=== PATIENT | male | born 1970 | race Caucasian/White ===

== ENCOUNTER → 2020-01-29 13:15 | Outpatient (BNVA) | payer OTHER, SELFPAY | PROVIDERS: Visit Provider Nurse Practitioner Family | DX: Z20.828 Contact with and (suspected) exposure to other viral communicable diseases (principal) | CPT/HCPCS: 87635 ==

== ENCOUNTER → 2021-08-19 09:43 | Outpatient (BNVA) | payer OTHER, SELFPAY | PROVIDERS: Referring Provider Nurse Practitioner; Visit Provider Orthopaedic Surgery | DX: M25.539 Pain in unspecified wrist (principal); F17.210 Nicotine dependence, cigarettes, uncomplicated | CPT/HCPCS: 73110; 99203 ==

== ENCOUNTER 2021-10-19 06:21 | Outpatient (CLI) | payer OTHER, SELFPAY ==
--- NOTE | 2021-10-19 07:15 | MR_ITS ---
WS: [id number] INDICATION: LEFT TECHNIQUE: MRI of the LEFT wrist without gadolinium enhancement. Coronal T1, coronal PD, coronal STIR , coronal 3-D FSPGR. Axial T1 and axial T2 and sagittal T1 imaging. FINDINGS: Palpable marker overlying the dorsal wrist at the level of the scaphoid. 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 Sclerosis in this area on the prior radiograph in retro spect. Slight subchondral cystic change involving the distal pole scaphoid likely degenerative. Mild subchondral cystic change involving the proximal and distal carpal row. Widening of the scapholunate interval measuring 3.2 mm. Moderate narrowing of the radiocarpal joint. Normal extensor and flexor compartment tendons. Normal extensor carpi ulnaris. TFCC appears intact. N o other acute findings. MR/MR wrist LT wo con* [id number] IMPRESSION: 1. Slight edema with loss of the normal T1 bone marrow signal in the proximal pole of the scaphoid in the area of palpable concern compatible with prior frac ture with avascular necrosis. Scaphoid could be further evaluated with CT. 2. 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 3. Moderate narrowing of the radiocarpal joint with chondromalacia. 4. No other acute findings.
== END 2021-10-19 06:22 | disposition home or self-care (01) ==
LOC: RAD 06:23
PROVIDERS: Visit Provider Orthopaedic Surgery
DX: M25.539 Pain in unspecified wrist (principal); M94.232 Chondromalacia, left wrist; R93.7 Abnormal findings on diagnostic imaging of other parts of musculoskeletal system
CPT/HCPCS: 73221

== ENCOUNTER → 2021-10-22 12:36 | Outpatient (BNVA) | payer OTHER, SELFPAY | PROVIDERS: Visit Provider Surgery | DX: K40.91 Unilateral inguinal hernia, without obstruction or gangrene, recurrent (principal) | CPT/HCPCS: 99203 ==

== ENCOUNTER → 2021-11-18 16:32 | Outpatient (BNVA) | payer OTHER, SELFPAY | PROVIDERS: Visit Provider Surgery | DX: Z09 Encounter for follow-up examination after completed treatment for conditions other than malignant neoplasm (principal); K40.91 Unilateral inguinal hernia, without obstruction or gangrene, recurrent | CPT/HCPCS: 99212 ==

== ENCOUNTER → 2022-07-05 08:51 | Outpatient (BNVA) | payer OTHER, SELFPAY | PROVIDERS: Referring Provider Nurse Practitioner; Visit Provider Anesthesiology Pain Medicine | DX: M54.50 Low back pain, unspecified (principal); M79.604 Pain in right leg; M79.605 Pain in left leg | CPT/HCPCS: 99204 ==

== ENCOUNTER → 2023-05-26 08:12 | Outpatient (BNVA) | payer OTHER, SELFPAY | PROVIDERS: Visit Provider Podiatrist Foot & Ankle Surgery | DX: Q82.8 Other specified congenital malformations of skin (principal) | CPT/HCPCS: 17110; 99203 ==

== ENCOUNTER 2023-08-04 14:50 | Outpatient (CLI) | payer OTHER, SELFPAY ==
--- NOTE | 2023-08-04 15:08 | MR_ITS ---
WS: [id number] MRI CERVICAL SPINE NONCONTRAST HISTORY: CERVICALGIA COMPARISON: None available. Technique: Multiplanar, multisequence noncontrast imaging of the cervical spine. Mild straightening of the normal cervical lordosis. Disc bases are moderately narrowed and desiccated , most significant at C4-5, C5-6 and C6-7. Signal within the cervical cord is normal. Visualized posterior fossa is unremarkable. Craniocervical junction, C1 and C2 relationship, odontoid process and soft tissues are normal. C2-C3: Small central disc osteophyte causing mild effacement of CSF very mild RIGHT foraminal stenosi s due to an osteophyte. C3-C4: No stenosis. C4-C5: Osteophytic ridging and disc bulging and facet arthritis. Mild central and moderate bilateral foraminal stenosis. Greater disc osteophyte RIGHT foramen. Mild facet arthritis. C5-C6: Osteophytic ridging, annular disc bulging and facet arthritis. Bilateral foraminal osteophytes are contributing to mild RIGHT and moderate LEFT foraminal stenosis. Mild central stenosis. C6-C7: Central disc protrusion and osteophytic ridging. Mild central stenosis with moderate bilateral foraminal stenosis. Larger osteophyte and disc complex on the RIGHT. C7-T1: Normal. Paraspinal soft tissue are normal. IMPRESSION: 1. Advanced degenerative disc disease in the cervical spine, most significant at C4-5, C5-6 and C6-7 with osteophytosis. 2. C4-5: Mild central and moderate bilateral foraminal stenosis. Greater disc osteophyte RIGHT rashel en. 3. C5-6: Moderate LEFT and mild RIGHT foraminal stenosis with mild central stenosis. Predominately d ue to disc osteophyte disease. 4. C6-7: Mild central stenosis with moderate bilateral foraminal stenosis. Greater disc osteophyte c omplex on the RIGHT. 5. C2-3: Small central disc osteophyte with very mild RIGHT foraminal narrowing.
== END 2023-08-04 14:51 | disposition home or self-care (01) ==
LOC: RAD 14:50
PROVIDERS: Visit Provider Nurse Practitioner Primary Care
DX: M48.02 Spinal stenosis, cervical region (principal); M25.78 Osteophyte, vertebrae
CPT/HCPCS: 72141

== ENCOUNTER → 2023-09-20 08:42 | Outpatient (BNVA) | payer OTHER, SELFPAY | PROVIDERS: PCP Nurse Practitioner; Visit Provider Orthopaedic Surgery | DX: M54.2 Cervicalgia (principal); M47.22 Other spondylosis with radiculopathy, cervical region | CPT/HCPCS: 36415; 72050; 80053; 81003; 85025; 99204 ==

== ENCOUNTER 2023-09-30 12:12 | Inpatient (IN) | payer OTHER, SELFPAY ==
[2023-09-30] VITALS (71 sets, daily range): BP systolic 90–172; BP diastolic 54–97; PULSE 54–125; RESP 12–22; TEMP 36.3–36.6; O2SAT 91–99; BMI 25.0; BMI 25.7
--- NOTE | 2023-09-30 | XR_ITS ---
WS: [id number] Exam: XR cervical spine 3V* [id number] Date/Time of Exam: 09/30/2023 12:00 AM Reason For Exam: KIARA PICS There is anterior fusion of the cervical spine from C4-C7 with plate and screw fixation. Intervening disc spacers are noted. The fusion appears to be in satisfactory alignment. An ET tube is in place. M ild degenerative facet change at all levels. XR/XR cervical spine 3V* [id number] IMPRESSION: 1. Anterior cervical fusion from C4-C7 in satisfactory alignment without obviou s complication.
[2023-09-30] MEDS: sodium chloride 0.9% 1,000 ML 30 ML IV (07:25)
--- NOTE | 2023-09-30 08:25 | P.ANESASSM_ITS ---
Pre-Anesthetic Assessment Height/Weight: Height 1.7 m Weight 72.575 kg Temp Pulse Resp BP Pulse Ox O2 Del Method 98 F 63 18 132/75 98 Room Air 09/30/23 07:11 09/30/23 07:11 09/30/23 07:11 09/30/23 07:11 09/30/23 07:11 09/30/23 07:11 Preop Diagnosis: Cervical spondylosis with radiculopathy Operation Date: 09/30/23 08:45 Proposed Procedures p Anterior Cervical Discectomy & Fusion ACDF w/ Anterior Interbody Fusion w/ Cage w/ Instrumentation w/ Allograft w/ Navigation L4-5-6-7(Not Applicable) - Cornell Betancourt, DO Familial anesthetic complications: None Was Beta Jojo taken within 24 hours: N/A Was Clonidine taken within 24 hours: N/A Last intake: Intake Last Liquid Date 09/29/23 Last Liquid Time 19:00 Last Solid Date 09/29/23 Last Solid Time 18:30 Social Tobacco (chews) and No alcohol Exam alert, oriented x 3, clear to auscultation bilaterally and regular rate & rhythm Airway Mallampati: Class II Dentition: other (very poor dentition multiple chipped and missing) Pulmonary Asthma and Chronic Obstructive Pulmonary Disease Anesthetic Plan ASA status: 2 Anesthesia: General Risk of > 500 ml blood loss (7ml/kg in children): No Medications/Allergies Home Medications Medication Instructions Recorded Confirmed Last Taken Type albuterol sulfate 90 mcg/actuation 2 puff inhalation Q6H PRN Allergy 01/29/20 09/29/23 09/27/23 History aerosol inhaler (ProAir HFA) Symptoms budesonide-formoterol HFA 160 2 puff inhalation BID 01/29/20 09/29/23 09/27/23 History mcg-4.5 mcg/actuation aerosol inhaler (Symbicort) ibuprofen 800 mg tablet 800 mg PO DAILY PRN Pain 05/26/23 09/29/23 09/29/23 History tizanidine 4 mg tablet 4 mg PO DIRECTED PRN Pain 05/26/23 09/30/23 09/26/23 H istory Allergies Allergy/AdvReac Type Severity Reaction Status Date / Time hydrocodone [From Vicodin] Allergy Intermediate severe Verified 09/20/23 08:57 aggression Current Medications Generic Name Dose Route Start Last Admin Trade Name Freq PRN Reason Stop Dose Admin Sodium Chloride 1,000 mls @ 30 mls/hr 09/30/23 07:00 09/30/23 07:25 Sodium Chloride 0.9% IV 10/01/23 06:59 30 mls/hr .Q24H CE Administration PFSH Anesthesia Social History Smoking and tobacco/nicotine status: current every day tobacco/nicotine user cigarettes Packs smoked per day: 0.5 Alcohol intake: current Alcohol intake frequency: 0-2 Drinks per Day Alcohol type: beer Substance/Drug Use: never Data Anesthesia Cardiac Studies: No Data to Display
--- NOTE | 2023-09-30 08:42 | W.PM.OPSUD ---
Surgery/Procedure H&P Update DATE OF PROCEDURE: September 30, 2023 DATE H&P PERFORMED: 09/20/23 H&P UPDATE INFORMATION: I have reviewed H&P completed within last 30 days, I have examined patient prior to procedure and No changes to prior documentation PREOP DIAGNOSIS: Cervical spondylosis with radiculopathy PLANNED PROCEDURE: Operation Date: 09/30/23 08:45 Proposed Procedures p Anterior Cervical Discectomy & Fusion ACDF w/ Anterior Interbody Fusion w/ Cage w/ Instrumentation w/ Allograft w/ Navigation L4-5-6-7(Not Applicable) - Cornell Betancourt DO
[2023-09-30] MEDS: ceFAZolin 2,000 MG in sodium chloride 0.9% (plus) 50 ML 100 MG IV ×2 (09:15→17:35)
[2023-09-30] MEDS: lidocaine-epi 1% 20 mL INJ INJECTION (10:03)
--- NOTE | 2023-09-30 12:39 | PM.OP ---
Operative Report Date of procedure: September 30, 2023 Pre-op diagnosis: Cervical spondylosis with radiculopathy Post-op diagnosis: same Procedure done: 1. Anterior diskectomy C4/5 2. Anterior diskectomy C5/6 3. Anterior discectomy C6/7 4. Insertion of cage C4/5 5. Insertion of cage C5/6 6. Insertion of Cage C6/7 7. Instrumentation with anterior plate from C4-C7 8. Use of allograft Surgeon: Cornell Betancuort DO Estimated blood loss (mL): 50 Procedure: 1. Anterior diskectomy C4/5 2. Anterior diskectomy C5/6 3. Anterior discectomy C6/7 4. Insertion of cage C4/5 5. Insertion of cage C5/6 6. Insertion of Cage C6/7 7. Instrumentation with anterior plate from C4-C7 8. Use of allograft The patient was taken to the operating room, where he underwent general endotracheal anesthesia without complications. He was then positioned supine on the operating table, and all areas of impingement were well padded. The arms were carefully padded and tucked at his sides. A roll was placed between the shoulder blades.. An x-ray was done to determine the appropriate level for the skin incision. The entire neck was then sterilely prepped and draped in the usual fashion. Neuromonitoring was attached prior to prepping. A transverse skin incision was made and carried down to the platysma muscle. This was then split in line with its fibers. Blunt dissection was carried down medial to the carotid sheath and lateral to the trachea and esophagus until the anterior cervical spine was visualized. A needle was placed into a disc and an x-ray was done to determine its location. The longus colli muscles were then elevated bilaterally with the electrocautery unit. Self-retaining retractors were placed deep to the longus colli muscle. Attention was brought to the C4/5 level that was confirmed on x-ray. A caspar pin was placed into the C4 vertebrae and the C5 vertebrae. The disk space was then distracted. The microscope was then brought in. A radical anterior discectomies were performed at C4/5. This included complete removal of the anterior annulus, nucleus, and posterior annulus. The posterior longitudinal ligament was removed as were the posterior osteophytes. Foraminotomies were then accomplished bilaterally. This was done using a high speed basilia, kerrison rongeurs and curretes Once all of this was accomplished, the curved currette was used to check for any residual compression. The central canal was wide open as were the foramen. A high-speed bur was used to remove the cartilaginous endplates above and below the interspace. Bleeding cancellous bone was exposed. The disc space were measured and appropriate size cage were placed sterilely onto the field. Allograft graft was packed into the cages. The cage was then placed and there was good juxtaposition against the bleeding decorticated surfaces and good distraction of each interspace. Attention was brought to the next interspace. The [place] pins were removed. Bone wax was used to prevent any bleeding from occurring at the pin sites. Attention was brought to the C5/6 level that was confirmed on x-ray. A caspar pin was placed into the C5 vertebrae and the C6 vertebrae. The disk space was then distracted. The microscope was then brought in. A radical anterior discectomies were performed at C5/6. This included complete removal of the anterior annulus, nucleus, and posterior annulus. The posterior longitudinal ligament was removed as were the posterior osteophytes. Foraminotomies were then accomplished bilaterally. This was done using a high speed basilia, kerrison rongeurs and curretes Once all of this was accomplished, the curved currette was used to check for any residual compression. The central canal was wide open as were the foramen. A high-speed bur was used to remove the cartilaginous endplates above and below the interspace. Bleeding cancellous bone was exposed. The disc space were measured and appropriate size cage were placed sterilely onto the field. Allograft graft was packed into the cages. The cage was then placed and there was good juxtaposition against the bleeding decorticated surfaces and good distraction of each interspace. Attention was brought to the next interspace. The [place] pins were removed. Bone wax was used to prevent any bleeding from occurring at the pin sites. Attention was brought to the C6/7 level that was confirmed on x-ray. A caspar pin was placed into the C6 vertebrae and the C7 vertebrae. The disk space was then distracted. The microscope was then brought in. A radical anterior discectomies were performed at C6/7. This included complete removal of the anterior annulus, nucleus, and posterior annulus. The posterior longitudinal ligament was removed as were the posterior osteophytes. Foraminotomies were then accomplished bilaterally. This was done using a high speed basilia, kerrison rongeurs and curretes Once all of this was accomplished, the curved currette was used to check for any residual compression. The central canal was wide open as were the foramen. A high-speed bur was used to remove the cartilaginous endplates above and below the interspace. Bleeding cancellous bone was exposed. The disc space were measured and appropriate size cage were placed sterilely onto the field. Allograft graft was packed into the cages. The cage was then placed and there was good juxtaposition against the bleeding decorticated surfaces and good distraction of each interspace. Attention was brought to the next interspace. The [place] pins were removed. Bone wax was used to prevent any bleeding from occurring at the pin sites. The appropriate size anterior cervical locking plate was chosen and bent into gentle lordosis. Two screws were then placed into each of the vertebral bodies at C4, C5, C6 and C7. There was excellent purchase. A final x-ray was done confirming good position of the hardware and Cages. The locking screws were then applied, also with excellent purchase. Following a final copious irrigation, there was good hemostasis and no dural leaks. The carotid pulse was strong. The wounds were then closed in layers using 2-0 Vicryl suture for the platysma muscle, 2-0 Vicryl suture for the subcutaneous tissue, and 4-0 monocryl suture in a subcuticular skin closure. Glue was placed followed by application of a sterile dressing. The drain was hooked to bulb suction. A soft collar was applied. The patient was then carefully returned to the supine position on his hospital bed where he was reversed and extubated and taken to the recovery room having tolerated the procedure well.
--- NOTE | 2023-09-30 15:16 | SUR.PHASEI ---
Addendum entered by Ambar Ramesh RN 09/30/23 15:42: Pressure was actually held, by Key, from 1335 - 1350 with no further bleeding noted. Original Note: 1330 This nurse noted hemovac drain out. Pt had been pulling at C-collar but this nurse did not visualize pt pull drain out. Pressure applied to drain site. Dressing slowly became saturated with blood. Eulalia, surgical charge nurse, to bedside and helped apply pressure. Dr Brock, anesthesiologist to bedside. Mirella, OPS nurse took over applying pressure and Eulalia contacted Dr Betancourt who instructed to change dressings to surgical incision site. Key, director surgical, to bedside and held pressure from 1335 to 1450. Bleeding slowed. Eulalia took pictures of the neck and surgical site and took them to Dr Betancourt who said ok . Key then changed the dressings. And a new C-collar applied as the origional C-Collar soiled with blood. Pt rested with eyes closed during this episode but was verbally responsive at all times. Vital signs remained stable. Resp remained even and unlabored.
--- NOTE | 2023-09-30 16:09 | PM.OP ---
Operative Report Date of procedure: September 30, 2023 Pre-op diagnosis: Postop hematoma Post-op diagnosis: same Procedure done: Evacuation of hematoma and placement of a drain Surgeon: Cornell Betancourt DO Estimated blood loss (mL): 5 Procedure: Patient was on the floor and having difficulty breathing. Patient had pulled out his drain in the postoperative area. At this point I took him down to surgery and emergently did a hematoma evacuation. Patient brought the operative suite after undergoing anesthesia was placed in supine position on the operating table. All his impingement well-padded.. Incision was opened. This mass was opened. Hematoma was evacuated there was a large hematoma and there no active bleeding was hematoma was evacuated. I placed Surgiflo in order to prophylactically prevent any further bleeding Hemovac drain was placed and wound was irrigated out and closed in layered fashion with Vicryl in the platysma's Vicryl Monocryl for the skin. Sterile dressings were applied patient was transferred to the ICU stable condition. I elected to keep the event and tube in place in order to allow for rest of his trachea. And protect his airway..
--- OUTSIDE RECORDS SUMMARY | 2023-09-30 16:23 | XMS_ITS | Patient Health Record ---
Author Name Unknown Organization [facility] Address [address] [place] [address] Care Team Providers Care Line Decorator Name Role Phone Huong Tovar Primary Care Provider Rodríguez Gross Unavailable [phone] Allergies Allergen (clinical drug ingredient) Drug/Non Drug Allergy documented on EMR Reaction Allergy Type Onset Date Status Vicodin Unknown Drug Allergy Active [place] Extract Unknown Drug Allergy Active Reason For Referral No Information Medications Medication SIG (Take, Route, Fr equency, Duration) Notes Start Date End Date Status Vitamin D Active Gabapentin 100 MG 1 capsule Orally TID Active Albuterol Active Sildenafil Citrate A ctive Symbicort Active Social History Tobacco Use: Social History Observation Description Date Details (start date - stop date) Current Smoker NA - NA xTobacco Use/Smoking Question Answer Notes Are you a current smoker How often do you smoke cigarettes? every day Additional Findings: Tobacco User e-Cigarette Problems Problem Type SNOMED Code ICD Code Onset Dates Problem Status W/U Status Risk Notes Problem Degeneration of lumbar intervertebral disc (42047400) Disc degeneratio n, lumbar (M51.36) Active confirmed Problem Arthropathy of lumbar facet joint (disorder) (221063183) Facet arthropathy , lumbar (M47.816) Active confirmed Plan Of Treatment No Information Insurance Providers Payer Name Payer Address Payer Phone Subscriber Number Group Number Insured Name Patient Relationship to Insured Coverage Start Date Coverage End Date [employer] [address] [place] [phone] [id number] Dev Walsh Self - patient is the insured Medical (General) History Medical History History ICD Code Chicken Pox Arthritis Migraine Hernia Hemmorhoids Asthma Bronchitis Surgical History Surgery Date(Month/Year) R Index Finger 1979 R Hernia 2000 L Pinky Finger 1994
--- NOTE | 2023-09-30 16:30 | ANE.PACU2 ---
Inpatient post-anesthesia follow up: Airway intact: No Vital signs: Temperature 97.8 F Pulse Rate 68 Respiratory Rate 22 Blood Pressure 132/84 Pulse Oximetry 94 Oxygen Delivery Me thod Room Air Oxygen Flow Rate 2 Fraction of Inspir ed Oxygen 21 Hydration adequate: Yes Nausea and vomiting: No Pain level: 1 Mental status: Altered
--- NOTE | 2023-09-30 16:47 | P.CONIM_ITS ---
Providers/Reason For Consult Consulting Physician/Specialty*: Hospitalist Reason for Consult*: Perioperative respiratory failure Attending Physician: Cornell Betancourt DO Primary Care Provider: YARIEL Figueroa History of Present Illness History of Present Illness Dev Walsh is a 53 year old male who is intubated after anterior discectomy C4-5-6 7 with instrumentation with anterior plate C4-C7, developed postoperative hematoma and Resp distress,Dr. Betancourt took him back to the OR for evacuation of hematoma and placement of drain, hospitalist consulted for postoperative management of perioperative respiratory failure patient is intubated and sedated on propofol. Hemodynamically stable. I requested ABG, stat CBC BMP. Will adjust ventilator settings currently he is on PEEP of 5, 100% FiO2 Review of Systems General: Reports: ROS unobtainable due to endotracheal tube Medications/Allergies Home Medications Medication Instructions Recorded Confirmed Last Taken Type albuterol sulfate 90 mcg/actuation 2 puff inhalation Q6H PRN Allergy 01/29/20 09/29/23 09/27/23 History aerosol inhaler (ProAir HFA) Symptoms budesonide-formoterol HFA 160 2 puff inhalation BID 01/29/20 09/29/23 09/27/23 History mcg-4.5 mcg/actuation aerosol inhaler (Symbicort) ibuprofen 800 mg tablet 800 mg PO DAILY PRN Pain 05/26/23 09/29/23 09/29/23 History tizanidine 4 mg tablet 4 mg PO DIRECTED PRN Pain 05/26/23 09/30/23 09/26/23 History Allergies Allergy/AdvReac Type Severity Reaction Status Date / Time hydrocodone [From Vicodin] Allergy Intermediate severe Verified 09/20/23 08:57 aggression PFSH Acute PFSH: Social History Smoking and tobacco/nicotine status: current every day tobacco/nicotine user cigarettes Packs smoked per day: 0.5 Alcohol intake: current Alcohol intake frequency: 0-2 Drinks per Day Alcohol type: beer Substance/Drug Use: never Vitals/I&O/Wt Last Vital Signs Temp 97.6 F 09/30/23 15:06 Pulse 69 09/30/23 15:06 Resp 16 09/30/23 16:44 BP 142/89 09/30/23 15:06 Pulse Ox 98 09/30/23 16:44 O2 Del Method Nasal Cannula 09/30/23 15:06 O2 Flow Rate 2 09/30/23 15:06 FiO2 70 09/30/23 16:44 09/30/23 09/30/23 09/30/23 06:59 14:59 22:59 Intake Total 1950 / 1950 Output Total 300 / 300 Balance 1650 / 1650 Weight last 48 hrs Weight 72.575 kg Physical Exam Narrative: Patient intubated sedated Euvolemic Currently on propofol Hemodynamically stable 100% FiO2 C-collar in place with drain Hemovac drain present Abdomen soft Albarran catheter in place Urinary Catheter Management: Albarran: Cath Placed During This Visit: yes, but has since been removed by the nurse Urinary Catheter Date of Insertion: 09/30/23 Urinary Catheter Time of Insertion: 16:12 Date Urinary Catheter Removed: 09/30/23 Time Urinary Catheter Discontinued: 12:22 A&P Assessment and plan (1) Cervical spondylosis with radiculopathy: (2) H/O neck surgery: (3) Respiratory failure: (4) Hematoma: Plan Perioperative respiratory failure postop day 0 Patient is intubated and sedated Currently on 100% FiO2 PEEP of 5 I have asked for straight therapist to do an ABG and adjust oxygen current to the blood gas I do not think he will require 100% FiO2 Requested stat CBC BMP and ABG Will add DuoNeb treatment as well Patient to stay intubated for at least next 24 hours Patient developed hematoma that caused respiratory distress after neck surgery C-collar in place Albarran catheter to be placed If hemoglobin stable I will be able to start DVT prophylaxis starting tonight Full code N.p.o. If stays hemodynamically stable Can do cuff leak by tomorrow and weaning trial Will follow-up with ABG and adjust ventilator settings Consult Attestations Medical Necessity Statement: Patient is intubated Coding Level of Care Code Critical Care >/= 30 minutes Critical care time (in minutes): 30 The high probability of a clinically significant, sudden or life threatening deterioration, as referenced in this documentation, required my full and direct attention, intervention and personal management. The critical care time shown is in addition to time spent performing any reported separately billable procedures and includes the following: [x] Data and vital sign review and interpretation [x ] Patient assessment, examination and intervention [x] Medication orders and management [x] Patient/Family updates as able [x] Care Coordination and Documentation. Diagnoses Cervical spondylosis with radiculopathy M47.22 H/O neck surgery Z98.890 Respiratory failure J96.90 Hematoma T14.8XXA
[2023-09-30] MEDS: albuterol 2.5 mg/3 mL Neb INHALATION ×2 (16:57→20:11)
[2023-09-30] MEDS: propofol 1,000 MG/100 ML INJ 10.8900000000000006 MG IV (17:00)
[2023-09-30 17:15] LABS: Basophils % 0.1 %; Eosinophils % 0.1 %; Hematocrit 38.1 % (37-53); Lymphocytes # 0.3 10^3/uL (0.8-4.8); Mean Corpuscular HGB Conc 35.2 g/dL (30-55); Mean Corpuscular Volume 88.2 fl (82-101); Mean Platelet Volume 8.7 fL (7.4-10.4); Monocytes # 0.5 10^3/uL (0.2-0.9); Monocytes % 3.2 %; Neutrophils # 13.14 10^3/uL (1.8-7.7); Neutrophils % 94.1 %; Nucleated Red Blood Cells % 0 %; Platelet Count 211 10^3/cmm (157-399); Red Blood Count 4.32 10^6/uL (3.85-5.65); Red Cell Distribution Width 11.9 % (12.1-15.1); White Blood Count 13.97 10^3/uL (3.29-11.43)
--- NOTE | 2023-09-30 17:17 | XRR_ITS ---
PROCEDURE INFORMATION: Exam: XR Chest Exam date and time: 09/30/2023 6:20 PM Age: 53 years old Clinical indication: Device placement; Ett placement (vent status); Prior surgery; Surgery date: Post-operative (0-2 days); Surgery type: C-spine; Additional info: Ventilation tube placement TECHNIQUE: Imaging protocol: Radiologic exam of the chest. Views: 1 view. COMPARISON: CT chest [facility] [id number] 11/19/2022 9:11 AM FINDINGS: Tubes, catheters and devices: Endotracheal tube terminates 3.5 cm above the rusty. Lungs: Curvilinear atelectasis or scarring at the left lung base. No consolidation. Pleural spaces: Unremarkable. No pleural effusion. No pneumothorax. Heart/Mediastinum: Unremarkable. No cardiomegaly. Bones/joints: ACDF hardware noted in the cervical spine. Visualized osseous structures are intact. XR/XR chest 1V portable [id number] IMPRESSION: Proper positioning of support apparatus.
[2023-09-30 17:23] LABS: ABG PCO2 40.6 mmHg (35-45); ABG PH Result 7.33 (7.35-7.45); Arterial Blood Gas Hematocrit 43.1 % (42-52); Base Excess ABG -4.3 mmol/L (-2.0-2.0); Blood Gas Operator Identificat glc; Blood Gas Sample Site Brachial, right; Blood Gas Sample Type Arterial; HCO3 ABG 21.4 mmol/L (22-26); Oxygen Device VENT
[2023-09-30 17:25] LABS: Blood Gas Tidal Volume 0.45; PO2 FiO2 Ratio Arterial Blood 0
[2023-09-30] MEDS: morphine 4 mg/mL SDV 1 mL IVP (17:26)
[2023-09-30 17:31] LABS: Anion Gap 15.2 (5-19); Blood Urea Nitrogen 13 mg/dL (6-20); Calcium 7.5 mg/dL (8.5-10.5); Carbon Dioxide 20 mmol/L (22-29); Chloride 104 mmol/L (98-107); Creatinine Clr Calc Pharmacy 94.3427; Glucose 129 mg/dL (65-115); Osmolality Calculated 282 mOsm/kg (285-295); Potassium 4.2 mmol/L (3.5-5.1); Sodium 135 mmol/L (136-145)
[2023-09-30] MEDS: lactated ringers 1,000 ML 90 ML IV (17:34)
[2023-09-30] MEDS: docusate sodium 100 mg Capsule PO (17:36)
[2023-09-30] MEDS: piperacillin-tazobactam 3.375 GM in sodium chloride 0.9% (plus) 50 ML IV (17:36)
[2023-09-30] MEDS: fentaNYL 1,000 MCG/100 ML BAG 2.5 MCG IV (18:59)
[2023-09-30] MEDS: propofol 1,000 MG/100 ML INJ 30.4800000000000004 MG IV (19:18)
[2023-09-30] MEDS: budesonide 0.5 mg/2 mL Neb INHALATION (20:10)
[2023-09-30] MEDS: enoxaparin 40 mg/0.4 mL Syringe SUBCUT (21:22)
[2023-09-30] MEDS: propofol 1,000 MG/100 ML INJ 28.3000000000000007 MG IV (22:21)
[2023-10-01] VITALS (101 sets, daily range): BP systolic 87–153; BP diastolic 55–86; PULSE 38–85; RESP 10–33; TEMP 36.8; O2SAT 89–100
[2023-10-01] MEDS: ceFAZolin 2,000 MG in sodium chloride 0.9% (plus) 50 ML 100 MG IV ×2 (00:11→09:09)
[2023-10-01] MEDS: fentaNYL 1,000 MCG/100 ML BAG 17.5 MCG IV (00:37)
[2023-10-01] MEDS: propofol 1,000 MG/100 ML INJ 26.129999999999999 MG IV (02:04)
[2023-10-01] MEDS: piperacillin-tazobactam 3.375 GM in sodium chloride 0.9% (plus) 50 ML IV ×3 (02:04→17:24)
[2023-10-01 03:53] LABS: ABG PCO2 33.2 mmHg (35-45); ABG PH Result 7.41 (7.35-7.45); Arterial Blood Gas Hematocrit 39.8 % (42-52); Base Excess ABG -2.7 mmol/L (-2.0-2.0); Blood Gas Allen Test Pos; Blood Gas Operator Identificat JB; Blood Gas Sample Site Brachial, right; Blood Gas Sample Type Arterial; Blood Gas Tidal Volume 0.45; HCO3 ABG 21.2 mmol/L (22-26); Oxygen Device VENT; PO2 ABG 86.6 mmHg (80.0-100.0); PO2 FiO2 Ratio Arterial Blood 0
[2023-10-01] MEDS: midazolam 1 mg/mL INJ 2 mL 2 MG IVP ×2 (04:16→05:40)
[2023-10-01] MEDS: lactated ringers 1,000 ML 90 ML IV ×2 (04:42→16:03)
[2023-10-01] MEDS: fentaNYL 1,000 MCG/100 ML BAG 20 MCG IV (05:40)
[2023-10-01] MEDS: propofol 1,000 MG/100 ML INJ 8.71000000000000085 MG IV (07:15)
[2023-10-01] MEDS: albuterol 2.5 mg/3 mL Neb INHALATION ×2 (07:36→11:38)
[2023-10-01] MEDS: budesonide 0.5 mg/2 mL Neb INHALATION ×2 (07:36→20:11)
[2023-10-01] MEDS: LORazepam 2 mg/mL INJ 10 mL MDV 1 MG IVP (08:04)
[2023-10-01 09:19] LABS: Basophils % 0.1 %; Hematocrit 39.6 % (37-53); Lymphocytes # 0.7 10^3/uL (0.8-4.8); Lymphocytes % 6.7 %; Mean Corpuscular HGB Conc 34.6 g/dL (30-55); Mean Corpuscular Hemoglobin 30.9 pg (27-33); Mean Corpuscular Volume 89.4 fl (82-101); Mean Platelet Volume 8.9 fL (7.4-10.4); Monocytes # 0.9 10^3/uL (0.2-0.9); Monocytes % 7.9 %; Neutrophils % 84.7 %; Nucleated Red Blood Cells % 0 %; Platelet Count 217 10^3/cmm (157-399); Red Blood Count 4.43 10^6/uL (3.85-5.65); Red Cell Distribution Width 11.9 % (12.1-15.1); White Blood Count 10.74 10^3/uL (3.29-11.43)
[2023-10-01 09:36] LABS: Anion Gap 18.4 (5-19); Blood Urea Nitrogen 10 mg/dL (6-20); Calcium 8.6 mg/dL (8.5-10.5); Carbon Dioxide 21 mmol/L (22-29); Chloride 102 mmol/L (98-107); Creatinine Clr Calc Pharmacy 95.3893; Glucose 137 mg/dL (65-115); Magnesium 2.1 mg/dL (1.7-2.3); Osmolality Calculated 287 mOsm/kg (285-295); Potassium 3.4 mmol/L (3.5-5.1); Sodium 138 mmol/L (136-145)
--- NOTE | 2023-10-01 09:44 | PC.NURSE ---
patient awake and folling commands, order from dr. Block to shut off sedation, 1x dose ativan per MAR, plan to extubate as long as breathing trial successful
--- NOTE | 2023-10-01 09:55 | P.PN_ITS ---
Subjective 2 Subjective: Patient intubated resting in ICU. Patient is starting to get weaned from the vent. At this point plan will be to leave the drain in and likely hopefully move upstairs if okay with the hospitalist. Vitals/I&O/Wt Last Vital Signs Temp 97.6 F 09/30/23 15:06 Pulse 62 10/01/23 09:00 Resp 16 10/01/23 09:35 BP 150/79 10/01/23 09:00 Pulse Ox 98 10/01/23 09:35 O2 Del Method Mechanical Ventilation 10/01/23 07:20 O2 Flow Rate 2 09/30/23 15:06 FiO2 21 10/01/23 09:35 09/30/23 10/01/23 10/01/23 22:59 06:59 14:59 Intake Total 304.042 / 2254.042 1463.960 / 3718.002 45.493 / 45.493 Output Total 550 / 850 2300 / 3150 Balance -245.958 / 1404.042 -836.040 / 568.002 45.493 / 45.493 Weight last 48 hrs Weight 164 lb 3.2 oz Weight 160 lb Physical Exam 2 Narrative: Intubated in process of weaning from the vent Urinary Catheter Management: Albarran: Cath Placed During This Visit: yes, but has since been removed by the nurse Reason for Continuing Indwelling Catheter: Accurate Measurement of Urinary Output in Critically Ill Patients Urinary Catheter Date of Insertion: 09/30/23 Urinary Catheter Time of Insertion: 16:12 Date Urinary Catheter Removed: 09/30/23 Time Urinary Catheter Discontinued: 12:22 Data 10/01/23 09:12 10/01/23 09:12 A&P Assessment and plan (1) Status post cervical spinal fusion: Postop day 1 ACDF and evacuation of hematoma Wean from vent today Anticipate discharge from ICU up to floor. Anticipate discharge planning tomorrow Attestations 2 Medical Necessity Statement*: Intubated Coding Level of Care Code Acute Code for Chg Fwd Diagnoses Status post cervical spinal fusion Z98.1
--- NOTE | 2023-10-01 10:14 | PC.NURSE ---
Patient extubated per RT to 2 L NC, AO follows commands
[2023-10-01] MEDS: morphine 4 mg/mL SDV 1 mL IVP ×2 (11:59→18:42)
--- NOTE | 2023-10-01 12:43 | P.PN_ITS ---
Subjective 2 Subjective: Patient intubated and sedated this morning which limits history from patient. Spouse is bedside and supportive. Discussed plan of care. Medications: Reviewed: Yes Vitals/I&O/Wt Last Vital Signs Temp 97.6 F 09/30/23 15:06 Pulse 53 L 10/01/23 11:41 Resp 14 10/01/23 11:59 BP 145/79 10/01/23 10:00 Pulse Ox 99 10/01/23 11:59 O2 Del Method Nasal Cannula 10/01/23 11:30 O2 Flow Rate 2 10/01/23 11:30 FiO2 21 10/01/23 09:35 09/30/23 10/01/23 10/01/23 22:59 06:59 14:59 Intake Total 304.042 / 2254.042 1463.960 / 3718.002 45.493 / 45.493 Output Total 550 / 850 2300 / 3150 Balance -245.958 / 1404.042 -836.040 / 568.002 45.493 / 45.493 Weight last 48 hrs Weight 74.48 kg Weight 72.575 kg Physical Exam 2 Narrative: General: Patient is intubated and sedated Head: Atraumatic. Neck: Drain present with some dark blood products in the drainage tube and slight old appearing blood in the drain. Cardiovascular: RRR. No gallops. No murmurs. No peripheral edema. Lungs: Clear to auscultation, no crackles or wheezes. Intubated on mechanical ventilation. Skin: No jaundice. No rashes. Abdomen: Hypoactive bowel sounds, abdomen soft. Genito Urinary: Genital exam not performed since complaints not related. Rectal: Rectal exam not performed since no symptoms indicated blood loss. Extremities: No cyanosis or clubbing. Musculoskeletal: No erythematous joints. Neurological: No myoclonus. Sedated. Urinary Catheter Management: Albarran: Cath Placed During This Visit: yes, but has since been removed by the nurse Reason for Continuing Indwelling Catheter: Accurate Measurement of Urinary Output in Critically Ill Patients Urinary Catheter Date of Insertion: 09/30/23 Urinary Catheter Time of Insertion: 16:12 Date Urinary Catheter Removed: 09/30/23 Time Urinary Catheter Discontinued: 12:22 Data 10/01/23 09:12 10/01/23 09:12 Micro: Microbiology 09/30/23 16:50 Gram Stain - Final Sputum - Endotracheal Tube Aspirate A&P Assessment and plan (1) Respiratory failure: Vent requirements have improved SBT this morning, if he does well assess for extubation Patient is on Zosyn, no obvious source of infection Check procalcitonin (2) Bradycardia: Patient found to be bradycardic with heart rate in the high 30s this morning Suspect secondary to the sedation Continues telemetry monitoring Monitor electrolytes Will see response to extubation (3) Cervical spondylosis with radiculopathy: Status post surgery Management per orthopedic spine (4) Hematoma: Status post drain placement, management per primary (5) H/O neck surgery: Management per primary Attestations 2 Medical Necessity Statement*: Patient requires ongoing hospitalization for vent management, drain management, postop care, and supportive care. Critical Care Time: The high probability of a clinically significant, sudden or life threatening deterioration of the patient's respiratory system(s) required my full and direct attention, intervention and personal management. The critical care time is as shown. This time is in addition to time spent performing any reported procedures but includes the following: [x] Data and vital sign review and interpretation [x] Patient assessment, examination and intervention [x] Documentation [x] Medication orders and management Critical Care Time (min): 33 Coding Level of Care Code Acute Code for [facility] Diagnoses Respiratory failure J96.90 Bradycardia R00.1 Cervical spondylosis with radiculopathy M47.22 Hematoma T14.8XXA H/O neck surgery Z98.890
[2023-10-01 13:33] LABS: Procalcitonin 0.27 ng/mL (0-0.5)
[2023-10-01] MEDS: morphine IR 15 mg Tablet PO ×2 (15:56→20:30)
[2023-10-01] MEDS: phenol oral Spray 177 mL 3 SPRAY MUCOUS MEM (16:02)
[2023-10-01] MEDS: enoxaparin 40 mg/0.4 mL Syringe SUBCUT (20:30)
[2023-10-02] VITALS (14 sets, daily range): BP systolic 118–152; BP diastolic 68–91; PULSE 62–84; RESP 14–22; TEMP 36.6; O2SAT 88–95
[2023-10-02] MEDS: morphine IR 15 mg Tablet PO ×2 (00:26→10:16)
[2023-10-02] MEDS: lactated ringers 1,000 ML 90 ML IV (01:29)
[2023-10-02] MEDS: piperacillin-tazobactam 3.375 GM in sodium chloride 0.9% (plus) 50 ML IV ×2 (01:30→09:31)
[2023-10-02] MEDS: morphine 4 mg/mL SDV 1 mL IVP (04:39)
[2023-10-02 05:41] LABS: Basophils % 0.2 %; Eosinophils # 0.1 10^3/uL (0.0-0.8); Eosinophils % 0.6 %; Hematocrit 37.5 % (37-53); Lymphocytes # 1.1 10^3/uL (0.8-4.8); Lymphocytes % 13.2 %; Mean Corpuscular HGB Conc 32.8 g/dL (30-55); Mean Corpuscular Hemoglobin 30.2 pg (27-33); Mean Corpuscular Volume 92.1 fl (82-101); Mean Platelet Volume 9.1 fL (7.4-10.4); Monocytes # 0.7 10^3/uL (0.2-0.9); Monocytes % 8.1 %; Neutrophils % 77.5 %; Nucleated Red Blood Cells % 0 %; Platelet Count 196 10^3/cmm (157-399); Red Blood Count 4.07 10^6/uL (3.85-5.65); Red Cell Distribution Width 12.4 % (12.1-15.1); White Blood Count 8.51 10^3/uL (3.29-11.43)
[2023-10-02 06:13] LABS: Albumin Level 3.5 g/dL (3.5-5.2); Anion Gap 11.9 (5-19); Blood Urea Nitrogen 9 mg/dL (6-20); Calcium 7.8 mg/dL (8.5-10.5); Carbon Dioxide 28 mmol/L (22-29); Chloride 106 mmol/L (98-107); Creatinine Clr Calc Pharmacy 106.3878; Glomerular Filtration Rate 101.9 mL/min (90-130); Glucose 106 mg/dL (65-115); Phosphorus 1.8 mg/dL (2.5-4.5); Potassium 3.9 mmol/L (3.5-5.1); Sodium 142 mmol/L (136-145)
[2023-10-02] MEDS: budesonide 0.5 mg/2 mL Neb INHALATION (07:44)
[2023-10-02] MEDS: albuterol 2.5 mg/3 mL Neb INHALATION (07:44)
[2023-10-02] MEDS: docusate sodium 100 mg Capsule PO (09:31)
--- NOTE | 2023-10-02 10:16 | P.PN_ITS ---
Subjective 2 Subjective: Patient is awake and alert this morning. He was extubated yesterday. Does have a cough which is at baseline per spouse. He reports pain is adequately controlled on oral analgesics currently. He has not had a bowel movement yet postoperatively. Overall doing better. He is hopeful to go home soon. Drain with reported fairly minimal output. Medications: Reviewed: Yes Vitals/I&O/Wt Last Vital Signs Temp 97.8 F 10/02/23 00:00 Pulse 84 10/02/23 08:00 Resp 22 H 10/02/23 08:00 BP 132/84 10/02/23 08:00 Pulse Ox 94 10/02/23 08:00 O2 Del Method Room Air 10/02/23 07:44 O2 Flow Rate 2 10/01/23 20:12 FiO2 21 10/01/23 09:35 10/01/23 10/02/23 10/02/23 22:59 06:59 14:59 Intake Total 1490 / 9780.618 7299 / 2804.493 250 / 250 Output Total 600 / 600 1400 / 2000 Balance 890 / 1185.493 -381 / 804.493 250 / 250 Weight last 48 hrs Weight 72.983 kg Weight 74.48 kg Physical Exam 2 Narrative: General: Patient is awake and alert. Head: Atraumatic. Hard of hearing. Neck: Drain present similar-appearing dark blood products in the drainage tube and slight old appearing blood in the drain. Neck brace in place. Cardiovascular: RRR. No gallops. No murmurs. No peripheral edema. Lungs: Clear to auscultation, no crackles or wheezes. Intubated on mechanical ventilation. Skin: No jaundice. No rashes. Abdomen: Improving bowel sounds, abdomen soft. Extremities: No cyanosis or clubbing. Musculoskeletal: No erythematous joints. Neurological: No myoclonus. Moves all extremities. Urinary Catheter Management: Albarran: Cath Placed During This Visit: yes, but has since been removed by the nurse Reason for Continuing Indwelling Catheter: Accurate Measurement of Urinary Output in Critically Ill Patients Urinary Catheter Date of Insertion: 09/30/23 Urinary Catheter Time of Insertion: 16:12 Date Urinary Catheter Removed: 09/30/23 Time Urinary Catheter Discontinued: 12:22 Data 10/02/23 04:50 10/02/23 04:50 Micro: Microbiology 09/30/23 16:50 Gram Stain - Final Sputum - Endotracheal Tube Aspirate A&P Assessment and plan (1) Cervical spondylosis with radiculopathy: Status post surgery Management per orthopedic spine Increase bowel regimen Continue therapy, encourage OOB Soft mechanical diet Downgrade versus discharge pending primary service evaluation (2) Respiratory failure: Resolved Discontinue Zosyn Breathing treatments PRN Encourage inspiratory spirometry (3) Bradycardia: Resolved (4) Hematoma: Status post drain placement, management per primary (5) H/O neck surgery: Management per primary Attestations 2 Medical Necessity Statement*: Per primary Coding Level of Care Code Acute Code for [facility] Fwd Diagnoses Cervical spondylosis with radiculopathy M47.22 Respiratory failure J96.90 Bradycardia R00.1 Hematoma T14.8XXA H/O neck surgery Z98.890
--- NOTE | 2023-10-02 10:25 | PM.DCS ---
Discharge Providers Date of Admission: 09/30/23 12:12 Date of Discharge: October 02, 2023 Attending Provider at Admission: Cornell Betancourt DO Attending Provider at Discharge: Cornell Betancourt DO Primary Care Provider: YARIEL Figueroa Diagnoses at Discharge Discharge Diagnosis (1) Respiratory failure: Status: Acute (2) Bradycardia: Status: Acute (3) Cervical spondylosis with radiculopathy: Status: Acute (4) Hematoma: Status: Acute (5) H/O neck surgery: Status: Acute Reason for Visit Reason for Visit: M47.22 Physical Exam Narrative: Patient sitting up in chair comfortable breathing well. At this point patient is been up with physical therapy several times. Urinary Catheter Management: Albarran: Cath Placed During This Visit: yes, but has since been removed by the nurse Reason for Continuing Indwelling Catheter: Accurate Measurement of Urinary Output in Critically Ill Patients Urinary Catheter Date of Insertion: 09/30/23 Urinary Catheter Time of Insertion: 16:12 Date Urinary Catheter Removed: 09/30/23 Time Urinary Catheter Discontinued: 12:22 Discharge Data Studies Completed and Pending Completed Studies During Hospitalization Category Date Time Status CXRP [XR chest 1V portable 44959] Routine Exams 09/30/23 17:17 Completed Pending at discharge Category Date Time Status C-arm Fluoroscopy 15596 Routine Exams 09/30/23 06:51 Taken Sputum Culture and Gram Stain Routine Lab 09/30/23 16:50 Results Radiology Impressions Chest X-Ray 09/30/23 17:17 IMPRESSION: Proper positioning of support apparatus. Laboratory Results WBC 8.51 10^3/uL (3.29-11.43) 10/02/23 04:50 Corrected WBC Cancelled 10/01/23 05:27 RBC 4.07 10^6/uL (3.85-5.65) 10/02/23 04:50 Hgb 12.30 g/dL (11.27-16.99) 10/02/23 04:50 Hct 37.5 % (37-53) 10/02/23 04:50 MCV 92.1 fl (82-101) 10/02/23 04:50 MCH 30.2 pg (27-33) 10/02/23 04:50 MCHC 32.8 g/dL (30-55) D 10/02/23 04:50 RDW 12.4 % (12.1-15.1) 10/02/23 04:50 Plt Count 196 10^3/cmm (157-399) 10/02/23 04:50 MPV 9.1 fL (7.4-10.4) 10/02/23 04:50 Gran % Cancelled 10/01/23 05:27 Neut % (Auto) 77.5 % 10/02/23 04:50 Lymph % (Auto) 13.2 % 10/02/23 04:50 Atlantic % (Auto) 8.1 % 10/02/23 04:50 Eos % (Auto) 0.6 % 10/02/23 04:50 Baso % (Auto) 0.2 % 10/02/23 04:50 Neut # (Auto) 6.60 10^3/uL (1.8-7.7) 10/02/23 04:50 Lymph # (Auto) 1.1 10^3/uL (0.8-4.8) 10/02/23 04:50 Atlantic # (Auto) 0.7 10^3/uL (0.2-0.9) 10/02/23 04:50 Eos # (Auto) 0.1 10^3/uL (0.0-0.8) 10/02/23 04:50 Baso # (Auto) 0.0 10^3/uL (0.0-0.1) 10/02/23 04:50 Absolute Gran (auto) Cancelled 10/01/23 05:27 Nucleated RBC % (auto) 0 % 10/02/23 04:50 Nucleated RBCs # 0.0 /100WBC 10/02/23 04:50 Specimen Type Arterial 10/01/23 03:40 Sample Site Brachial, right 10/01/23 03:40 ABG pH 7.41 (7.35-7.45) 10/01/23 03:40 ABG pCO2 33.2 mmHg (35-45) L 10/01/23 03:40 ABG pO2 86.6 mmHg (80.0-100.0) 10/01/23 03:40 ABG PO2/FiO2 Ratio 0 10/01/23 03:40 ABG HCO3 21.2 mmol/L (22-26) L 10/01/23 03:40 ABG Base Excess -2.7 mmol/L (-2.0-2.0) L 10/01/23 03:40 Joseph Test Pos 10/01/23 03:40 Hematocrit 39.8 % (42-52) L 10/01/23 03:40 O2 Delivery Device Vent 10/01/23 03:40 FiO2 30.0 % 10/01/23 03:40 Tidal Volume 0.45 10/01/23 03:40 PEEP 5.0 cmH20 10/01/23 03:40 Primer Waterproofing Machine Adjuster ID Zach 10/01/23 03:40 Sodium 142 mmol/L (136-145) 10/02/23 04:50 Potassium 3.9 mmol/L (3.5-5.1) 10/02/23 04:50 Chloride 106 mmol/L (98-107) 10/02/23 04:50 Carbon Dioxide 28 mmol/L (22-29) 10/02/23 04:50 Anion Gap 11.9 (5-19) 10/02/23 04:50 BUN 9 mg/dL (6-20) 10/02/23 04:50 Creatinine 0.8 mg/dL (0.7-1.2) 10/02/23 04:50 GFR Calculation 101.9 mL/min (90-130) 10/02/23 04:50 Glucose 106 mg/dL (65-115) 10/02/23 04:50 Calculated Osmolality 287 mOsm/kg (285-295) 10/01/23 09:12 Calcium 7.8 mg/dL (8.5-10.5) L 10/02/23 04:50 Phosphorus 1.8 mg/dL (2.5-4.5) L 10/02/23 04:50 Magnesium 2.1 mg/dL (1.7-2.3) 10/01/23 09:12 Albumin 3.5 g/dL (3.5-5.2) 10/02/23 04:50 Procalcitonin 0.27 ng/mL (0-0.5) 10/01/23 09:12 Vitals Last Vital Signs Temp 97.8 F 10/02/23 00:00 Pulse 84 10/02/23 08:00 Resp 22 H 10/02/23 10:16 BP 132/84 10/02/23 08:00 Pulse Ox 94 10/02/23 08:00 O2 Del Method Room Air 10/02/23 07:44 O2 Flow Rate 2 10/01/23 20:12 FiO2 21 10/01/23 09:35 Discharge Plan Discharge Patient Disposition: Home Condition: Stable Prescriptions: New oxycodone 5 mg tablet 5 mg PO Q4H PRN (Reason: pain) 7 Days Qty: 40 0RF Continued budesonide-formoterol [Symbicort] 160-4.5 mcg/actuation HFA aerosol inhaler 2 puff INHALATION BID albuterol sulfate [ProAir HFA] 90 mcg/actuation HFA aerosol inhaler 2 puff INHALATION Q6H PRN (Reason: Allergy Symptoms) tizanidine 4 mg tablet 4 mg PO DIRECTED PRN (Reason: Pain) Discontinued ibuprofen 800 mg tablet 800 mg PO DAILY PRN (Reason: Pain) Discharge Orders: Discharge Order (Routine); Ordered 10/02/23 Ordered By: Cornell Betancourt Discharge Diet: Advance as tolerated Discharge Activity: Limit activity as instructed Patient Instructions: Opioid Safety Activity Restrictions/Additional Instructions: Thank you for choosing [facility] for your care! The following is a list of instructions, from your provider, to follow upon your discharge to ensure you have the optimal recovery from your recent injury or surgery. Anterior Cervical Discectomy and Fusion: What to Expect at Home Your Recovery Follow-up care is a holguin part of your treatment and safety. Be sure to make and go to all appointments, and call your doctor if you are having problems. If you do not already have a follow-up appointment made, call office in the next 1-3 days to make follow up appointment for 2 weeks at [phone]. It is also a good idea to know your test results and keep a list of the medicines you take. You can expect your neck to feel stiff or sore after surgery. This should improve in the weeks after surgery. But it may take 4 to 6 months for you to get better completely. You may have trouble sitting or standing in one position for very long and may need pain medicine in the weeks after your surgery. It may take 4 to 6 weeks to get back to your usual activities, but it may depend on what kind of surgery you had. Your throat will feel sore and it may be difficult to swallow for the first 3 days after your surgery. As long as you can get liquids down without difficulty, this should slowly improve, otherwise call our office or seek medical attention if it becomes increasingly difficult to get anything down including liquids. Avoid hot liquids for first 3-5 days. Soothing foods/liquids such as jello, pudding, and luke warm soups are recommended until swallowing improves. Staying elevated will also help, it's advised you keep propped up at while sleeping to help reduce the swelling. You may use an ice pack directly on your incision or around it on the front of your neck, using a cloth to protect your skin; and a heating pad to the back of your neck as needed. Do not use over the counter anti-inflammatory medications (Ibuprofen, Motrin, Aleve, Advil, etc) Taking these meds after having a fusion can delay fusion rates, we recommend you avoid them for the first 3 months after your surgery[address] Dr. Betancourt may advise you to work with a physical therapist to strengthen the muscles around your neck and back - this will be discussed at your follow - up appointments. The pain or numbness you were having in your arms before surgery should get better or go away completely. This care sheet gives you a general idea about how long it will take for you to recover. But each person recovers at a different pace. Follow the steps below to get better as quickly as possible. How can you care for yourself at home? Activity ? Rest when you feel tired. Getting enough sleep will help you recover. ? Try to walk each day. Start by walking a little more than you did the day before. Bit by bit, increase the amount you walk. Walking boosts blood flow and helps prevent pneumonia and constipation. Walking may also decrease your muscle soreness after surgery. ? No lifting anything that is more that 5 pounds. This may include heavy grocery bags and milk containers, a heavy briefcase or backpack, cat litter or dog food bags, a child, or a vacuum filter screen cleaner. ? Avoid strenuous activities, such as bicycle riding, jogging, weightlifting, or aerobic exercise, until your doctor says it is okay. ? Do not drive until your follow-up visit after your surgery, or until your doctor says it isokay. ? Avoid taking long car trips for 2 to 4 weeks after surgery. Your neck may become tired and painful from sitting too long in one position. ? You will probably need to take 4 to 6 weeks off from work. It depends on the type of work you do and how you feel. ? You may have sex as soon as you feel able, but avoid positions that put stress on your neck or cause pain. Diet ? You can eat your normal diet. If your stomach is upset, try bland, low-fat foods like plain rice, broiled chicken, toast, and yogurt ? Drink plenty of fluids. If you have kidney, heart, or liver disease and have to limit fluids, talk with your doctor before you increase the amount of fluids you drink. ? You may notice that your bowel movements are not regular right after your surgery. This is common. Try to avoid constipation and straining with bowel movements. You may want to take a fiber supplement every day. If you have not had a bowel movement after a couple of days, ask your doctor about taking a mild laxative. Medicines ? Take pain medicines exactly as directed. 1. If Dr. Betancourt gave you a prescription medicine for pain, take lt as prescribed. 2. Do not take two or more pain medicines at the same time unless the doctor told you to. Many pain medicines have acetaminophen, which is Tylenol. Too much acetaminophen {Tylenol) can be harmful. 3. If you think your pain pill is making you sick to your stomach: 4. Take your pills after meals (unless your doctor has told you not to). 5. Ask your Dr. for a different pain pill. Incisioncare ? Remove your dressing 48hours after your surgery. Ok to shower and get the incision wet. Do not overtly wash your incision. When done, pad dry, leave open to air thereafter. Avoid creams and ointments directly on your incision. ? Your sutures in the incision will dissolve and fall out on their own. ? Keep the area clean and dry. You may cover it with a gauze bandage if it weeps or rubs against clothing; if you choose to do this, change the dressing everyday. Other instructions ? Use a heating pad, hot water bottle, or gentle massage on your back to reduce stiffness. Avoid putting heat on your incision When should you call for help? ? Call 911 anytime you think you may need emergency care. For example, call if: ? You pass out (lose consciousness). ? You have sudden chest pain and shortness of breath, or you cough upblood. ? You cannot swallow. ? You have severe pain in your neck or back. ? Call your Dr. or seek immediate medical care if: ? You have pain that does not get better after you take pain pills. ? You have loose stitches, or your incision comes open. ? You have blood or fluid draining from the incision. ? You have signs of infection, such as: 1. Increased pain, swelling, warmth, or redness. 2. Red streaks leading from the site. 3. Pus draining from the site. 4. Swollen lymph nodes in your neck or armpits. 5. A fever. ? You have severe pain in your arms. ? You have new or increased weakness or numbness in your arms. ? Watch closely for any changes in your health, and be sure to contact your doctor if: ? You do not have a bowel movement after taking a laxative. Discharge Attestations Time Spent in Discharge Care*: less than 30 min Quality Metrics Clinical Quality Measures [ No reported AMI, CVA or VTE this stay] Coding Level of Care Code Acute Code for Chg Fwd Diagnoses Respiratory failure J96.90 Bradycardia R00.1 Cervical spondylosis with radiculopathy M47.22 Hematoma T14.8XXA H/O neck surgery Z98.890
== END 2023-10-02 11:00 | disposition home or self-care (01) | DRG 472 ==
LOC: ICU 16:21 → MEDSURG 16:21
PROVIDERS: Internal Medicine; Admitting Provider Orthopaedic Surgery; PCP Nurse Practitioner; Visit Provider Orthopaedic Surgery
PROC: 0RB30ZZ Excision of Cervical Vertebral Disc, Open Approach (ICD-10-PCS; CPT 22551; principal; 2023-09-30 08:25)
PROC: 0RG20A0 Fusion of 2 or more Cervical Vertebral Joints with Interbody Fusion Device, Anterior Approach, Anterior Column, Open Approach (ICD-10-PCS; principal; 2023-09-30 15:10)
DX: M47.22 Other spondylosis with radiculopathy, cervical region (principal); M96.840 Postprocedural hematoma of a musculoskeletal structure following a musculoskeletal system procedure; M48.02 Spinal stenosis, cervical region; F17.220 Nicotine dependence, chewing tobacco, uncomplicated; J44.9 Chronic obstructive pulmonary disease, unspecified; R00.1 Bradycardia, unspecified
CPT/HCPCS: 36415; 51702; 71045; 72040; 76000; 80048; 80069; 82803; 83735; 84145; 85025; 87070; 87205; 92610; 94002; 94003; 94640; 94799; 96372; 96376; 97110; 97116; 97162; C1713; C1763; C9359; J0330; J0690; J1100; J1170; J1650; J2060; J2250; J2270; J2405; J2543; J2704; J2710; J3010; J3490; J7030; J7120; J7613; J7626

== ENCOUNTER → 2023-10-13 10:05 | Outpatient (BNVA) | payer OTHER, SELFPAY | PROVIDERS: PCP Nurse Practitioner; Visit Provider Orthopaedic Surgery | DX: Z98.1 Arthrodesis status (principal) | CPT/HCPCS: 99024 ==

== ENCOUNTER → 2023-11-03 10:56 | Outpatient (BNVA) | payer OTHER, SELFPAY | PROVIDERS: PCP Nurse Practitioner; Visit Provider Orthopaedic Surgery | DX: Z98.1 Arthrodesis status (principal) | CPT/HCPCS: 72040; 99024 ==

== ENCOUNTER → 2023-12-15 08:15 | Outpatient (BNVA) | payer OTHER, SELFPAY | PROVIDERS: PCP Nurse Practitioner; Visit Provider Orthopaedic Surgery | DX: Z98.1 Arthrodesis status (principal) | CPT/HCPCS: 72040; 99024 ==

== ENCOUNTER → 2024-01-05 15:50 | Outpatient (BNVA) | payer OTHER, SELFPAY | PROVIDERS: PCP Nurse Practitioner; Visit Provider Orthopaedic Surgery | DX: Z98.1 Arthrodesis status (principal) | CPT/HCPCS: 72040; 99024 ==

== ENCOUNTER 2024-01-18 07:22 | Outpatient (RCR) | payer OTHER, SELFPAY | END 2024-02-06 23:59 | disposition home or self-care (01) | LOC: SPT 07:22 | PROVIDERS: Visit Provider Orthopaedic Surgery | DX: M54.2 Cervicalgia (principal) | CPT/HCPCS: 97110; 97161 ==

== ENCOUNTER 2024-02-07 06:00 | Outpatient (RCR) | payer OTHER, SELFPAY | END 2024-03-08 23:59 | disposition home or self-care (01) | LOC: SPT 06:00 | PROVIDERS: Visit Provider Orthopaedic Surgery | DX: Z98.1 Arthrodesis status (principal) | CPT/HCPCS: 97110 ==

== ENCOUNTER 2024-03-09 06:00 | Outpatient (RCR) | payer OTHER, SELFPAY | END 2024-03-14 23:59 | disposition home or self-care (01) | LOC: SPT 06:00 | PROVIDERS: Visit Provider Orthopaedic Surgery | DX: Z98.1 Arthrodesis status (principal) | CPT/HCPCS: 97110 ==

== ENCOUNTER → 2024-04-12 14:02 | Outpatient (BNVA) | payer OTHER, SELFPAY | PROVIDERS: PCP Nurse Practitioner; Visit Provider Orthopaedic Surgery | DX: Z98.1 Arthrodesis status (principal) | CPT/HCPCS: 72040; 99213 ==

== ENCOUNTER 2024-04-19 08:07 | Outpatient (CLI) | payer OTHER, SELFPAY ==
--- NOTE | 2024-04-19 08:13 | FL_ITS ---
WS: [id number] Exam: FL barium swallow modifd [id number] Date/Time of Exam: 04/19/2024 8:55 AM Reason For Exam: Other dysphagia Fluoroscopy time: 2min [id number] minutes # of spot films: 0 Modified barium swallow was performed in conjunction with the speech therapy service. Oral pharyngeal phase of swallowing was normal. The patient tolerated all consistencies of barium mix ture foodstuffs without aspiration or penetration. The patient swallowed a barium tablet without diff iculty. FL/FL barium swallow modifd [id number] IMPRESSION: 1. No aspiration or penetration identified. A separate report with recommendations will follow from the speech therapy serv ice.
== END 2024-04-19 08:08 | disposition home or self-care (01) ==
LOC: RAD 08:08
PROVIDERS: PCP Nurse Practitioner; Visit Provider Nurse Practitioner
DX: R13.10 Dysphagia, unspecified (principal)
CPT/HCPCS: 74230; 92611

== ENCOUNTER 2025-03-09 13:15 | Emergency (ER) | payer OTHER, SELFPAY ==
--- OUTSIDE RECORDS SUMMARY | 2025-03-09 13:21 | XMS_ITS | Patient Health Record ---
Author Organization [facility] Address [address] [place] [address] Care Team Providers Care Medical Pathology Teacher Name Role Phone Huong Sigala Primary Care Provid er Unavailable Rodríguez Lockhart Unavailable [phone] Allergies Allergen (clinical drug ingredient) Drug/Non Drug Allergy documented on EMR Reaction Allergy Type Onset Date Status Vicodin Unknown Drug Allergy Active [place] Extract Unknown Drug Allergy Active Reason For Referral No Information Medications Medication SIG (Take, Route, Frequency, Duration) Notes Start Date End Date Status Vitamin D Active Gabapentin 100 MG Capsule 1 capsule Orally TID Active Albuterol Active Sildenafil Citrate A ctive Symbicort Active Social History Tobacco Use: Social History Observation Description Date Details (start date - stop date) Current Smoker NA - NA Social History Drugs/Alcohol: Social Info Question Answer Notes Drugs Have you used drugs other than those for medical reasons in the past 12 months? Yes Tobacco Use: Social Info Question Answer Notes xTobacco Use/Smoking Are you a current smoker How often do you smoke cigarettes? every day Additional Findings: Tobacco User e-Cigarette Problems Problem Type SNOMED Code ICD Code Onset Dates Problem Status W/U Status Risk Notes Problem Degeneration of lumbar intervertebral disc (93120485) Disc degeneratio n, lumbar (M51.36) Active confirmed Problem Arthropathy of lumbar facet joint (disorder) (360884883) Facet arthropathy , lumbar (M47.816) Active confirmed Plan Of Treatment No Information Insurance Providers Payer Name Payer Address Payer Phone Subscriber Number Group Number Insured Name Patient Relationship to Insured Coverage Start Date Coverage End Date [employer] [address] [place] [phone] [id number] Dev Walsh Self - patient is the insured Medical (General) History Medical History History ICD Code Chicken Pox Arthritis Migraine Hernia Hemmorhoids Asthma Bronchitis Surgical History Surgery Date(Month/Year) L Pinky Finger 1993 R Hernia 2000 R Index Finger 1979
--- OUTSIDE RECORDS SUMMARY | 2025-03-09 13:21 | XMS_ITS | Clinical Summary ---
Author Organization [employer] Address [address] Soriano: [place] [address] Care Team Providers Care Business Investor Name Role Phone Unavailable Primary Care Provider Unavailabl e Allergies Active Allergy Reactions Criticality Noted Date Comments Doxycycline Unknown 08/25/2022 [facility], but the patient says he cannot recall ever taking doxycycline Hydrocodone-Acetaminophen Confusion Low 09/30/2021 Medications GABAPENTIN ORAL Take by mouth. Active ketorolac tromethamine (TORADOL) 10 mg tablet Take 1 Tablet (10 mg) by mouth every 6 hours as needed for Pain. 20 Tablet 2 Active albuterol sulfate HFA 90 mcg/actuation aerosol inhaler Take by inhalation. 4 Active atorvastatin (LIPITOR) 40 mg tablet Take 40 mg by mouth daily. 5 Active busPIRone (BUSPAR) 15 mg Tablet Take 7.5 mg by mouth 2 times daily. 5 Active losartan (COZAAR) 50 mg tablet Take 50 mg by mouth daily. 5 Active tadalafiL (CIALIS) 20 mg tablet Take 20 mg by mouth 1 time daily as needed for Erectile Dysfunction. 5 Active cetirizine (ZyrTEC) 10 mg tablet Take 10 mg by mouth daily. for allergies 5 Active ergocalciferol (VITAMIN D2) 50,000 unit capsule Take 50,000 Units by mouth every 7 days. 5 Active fluticasone propionate (FLONASE) 50 mcg/spray Sunshine, Suspension nasal inhaler Administer 2 Sprays in each nostril daily. 5 Active fluticasone propion-salmetero L (ADVAIR DISKUS,WIXELA INHUB) 100-50 mcg/dose disk inhaler Take 1 Puff by inhalation 2 times daily. Active Active Problems Problem Noted Date Diagnosed Date Uncomplicated asthma 02/28/2024 Non-smoker 02/28/2024 Encounters Date Type Department Care Team Description 01/29/2025 External Device Data [facility]CTION Provider, Abstract 01/29/2025 External Device Data [facility] Provider, Abstract 01/29/2025 External Device Data [facility] Provider, Abstract 01/26/2025 9:30 PM CDT - 01/26/2025 10:23 PM CDT Emergency [facility] Emergency Medicine [address] [place] [address] Deric Turpin MD Foreign body of right ear, initial encounter (Primary Dx) Discharge Disposition: Home or Self Care 01/26/2025 Travel 01/22/2025 External Device Data [facility]STRACTION Provider, Abstract 01/08/2025 External Device Data [facility] Provider, Abstract 01/08/2025 External Device Data [facility]STRA[facility] Provider, Abstract from Last 3 Months Family History Medical History Relation Name Comments Colon Cancer Neg Hx Social History Tobacco Use Types Packs/Day Years Used Date Smoking Tobacco: Never Smokeless Tobacco: Never Alcohol Use Standard Drinks/Week Comments Not Currently 0 (1 standard drink = 0.6 oz pur e alcohol) Feeling Safe Answer Date Recorded Are you in a relationship wi th someone who hurts you emotionally and/or physically? 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 [employer] Gender Identity Not on file Sexual Orientation Not on file Last Filed Vital Signs Vital Sign Reading Time Taken Comments Blood Pressure 116/64 01/26/2025 10:00 PM CDT Pulse 66 01/26/2025 10:00 PM CDT Temperature 36.8 C (98.2 F) 01/26/2025 9:33 PM CDT Respiratory Rate 16 01/26/2025 10:00 PM CDT Oxygen Saturation 96% 01/26/2025 10:00 PM CDT Inhaled Oxygen Concentration - - Weight 71.7 kg (158 lb) 01/26/2025 9:33 PM CDT Height 170.2 cm (5' 7 ) 01/26/2025 9:33 PM CDT Body Mass Index 24.75 01/26/2025 9:33 PM CDT Plan of Treatment Health Maintenance Due Date Last Done Comments HEPATITIS B VACCINES (1 of 3 - 19+ 3-dose series) 1991 COLORECTAL SCREENING 2017 Colorectal Cancer Screening 2017 FIT-DNA Q 3 years 2017 FIT/FOBT Q 1 year 2017 Flex Sig/CT Colonography Q 5 years 2017 ZOSTER VACCINE (1 of 2) 2022 INFLUENZA VACCINE (#1) 2024 DTAP/TDAP/TD VACCINES (3 - Td or Tdap) 12/08/2027, 05/09/2010 Insurance * Guarantor: N[employer]A [employer] Account Type Relation to Patient Date of Phone Billing Address [employer] Other DEFAULT ADDRESS [address] [place] * Guarantor: NELA [employer] [facility] (C) Account Type Relation to Patient Date of Phone Billing Address [employer] Other DEFAULT ADDRESS [address] [place] [employer]
[2025-03-09 13:24] VITALS: BP 128/75; PULSE 80; RESP 14; TEMP 36.9; O2SAT 96; BMI 25.0
[2025-03-09 13:45] LABS: Glucose Urine UA Negative (Normal); Nitrate Urine Negative (Negative); Specific Gravity, Urine 1.024 (1.005-1.030)
[2025-03-09 13:50] LABS: Add Urine Microscopic? YES
--- NOTE | 2025-03-09 14:03 | CTR_ITS ---
PROCEDURE INFORMATION: Exam: CT Abdomen And Pelvis Without Contrast Exam date and time: 03/09/2025 2:23 PM Age: 54 years old Clinical indication: Abdominal pain; Periumbilical; Prior surgery; Surgery date: 6+ months; Surgery type: Right inguinal hernia TECHNIQUE: Imaging protocol: Computed tomography of the abdomen and pelvis without contrast. Radiation optimization: All CT scans at this facility use at least one of these dose optimization techniques: automated exposure control; mA and/or kV adjustment per patient size (includes targeted exams where dose is matched to clinical indication); or iterative reconstruction. COMPARISON: CT chest wo con [id number] 11/19/2022 9:11 AM RADIATION DOSE METRICS: Total DLP (mGy-cm): 491.86 FINDINGS: Heart: The heart is unremarkable. No cardiomegaly. No pericardial effusion. Esophagus: The visible esophagus is unremarkable. Liver: Liver is unremarkable. Gallbladder and biliary ducts: The gallbladder and biliary tree are unremarkable. Pancreas: Pancreas is unremarkable. The pancreatic duct is normal in size. Spleen: Small splenule posterior to the spleen.Spleen is unremarkable. Adrenal glands: The adrenal glands are unremarkable. Kidneys and ureters: The left kidney is absent. The left ureter is absent. Right kidney is hypertrophied. The right ureter is unremarkable. There are small 1 mm nonobstructing stones of the right kidney. Stomach and bowel: Submucosal edema of the terminal ileum. There is mild surrounding inflammatory change and hyperemia. The remaining bowel is unremarkable. Appendix: The appendix is normal. Intraperitoneal space: The intraperitoneal space is unremarkable. No free air. No significant fluid collection. Vasculature: There is absence of the left renal artery. The vasculature is otherwise unremarkable accounting for age. No abdominal aortic aneurysm. Lymph nodes: No enlarged lymph nodes. Urinary bladder: The urinary bladder is unremarkable. markable. Reproductive: The left seminal vesicle is small. The reproductive organs are otherwise unremarkable. Bones/joints: There is mild spondylosis of the visible spine. Soft tissues: The remaining soft tissue is unremarkable. There is a small fat containing left direct inguinal hernia. CT/CT abdomen pelvis wo con [id number] IMPRESSION: Terminal ileitis. This may be caused by inflammatory bowel disease or infection, among other causes. 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
--- NOTE | 2025-03-09 14:06 | W.ED.ABDPA2 ---
HPI - Abdominal Pain General: Chief Complaint: Abdominal Pain Stated Complaint: Abd pain / N / D Time Seen by Provider: 03/09/25 13:57 History of Present Illness: Patient is a 54-year-old gentleman with history of cervical neck surgery, presents to the emergency room with mid low-lying abdominal pain, nausea, and diarrhea. This started this morning upon awakening. No recent antibiotics. No previous colonoscopy. No previous CT of the abdomen/pelvis in the past. Urinalysis is back, and is benign. No history of renal colic. History of congenital unilateral kidney. No fevers. No sick contact. Associated Symptoms: Reports bloating, diarrhea and nausea; Denies chills, fever(s) and vomiting Related Data Home Medications ?Medication ?Instructions ?Recorded ?Confirmed albuterol sulfate 90 mcg/actuation 2 puff inhalation Q6H PRN Allergy 01/29/20 04/12/24 aerosol inhaler (ProAir HFA) Symptoms budesonide-formoterol HFA 160 2 puff inhalation BID 01/29/20 04/12/24 mcg-4.5 mcg/actuation aerosol inhaler (Symbicort) tizanidine 4 mg tablet 4 mg PO DIRECTED PRN Pain 05/26/23 04/12/24 Previous Rx's ?Medication ?Instructions ?Recorded prednisone 20 mg tablet 20 mg PO DAILY #15 tabs 01/05/24 ketorolac 10 mg tablet 10 mg PO Q8H PRN pain 5 days #14 03/09/25 tabs methylprednisolone 4 mg tablets in See Rx Instructions PO .COMPLEX 03/09/25 a dose pack (Medrol (Jhonny)) #21 ea ondansetron 4 mg disintegrating 4 mg PO Q8H PRN nausea and 03/09/25 tablet vomiting 4 days #14 tabs Allergies Allergy/AdvReac Type Severity Reaction Status Date / Time hydrocodone (From Vicodin) Allergy Intermediate severe Verified 03/09/25 13:27 aggression Review of Systems General: Reports: 10 or more systems reviewed and unremarkable except in HPI and below Const: Denies: fever(s), chills or body aches Eyes: Denies: change in vision or blurry vision Card: Denies: chest pain, dyspnea on exertion or orthopnea Resp: Denies: dyspnea, productive cough or wheezing GI: Reports: abdominal pain, nausea, diarrhea and bloating; Denies: vomiting Musc: Denies: neck pain, back pain, extremity pain, joint pain, joint swelling or limited range of motion Skin/Breast: Denies: changes in skin color or dry skin Neuro: Denies: numbness in extremities or weakness in extremities Psych: Denies: anxiety or depression Alberto/Lymph: Denies: easy bruising or easy bleeding PFSH ED PFSH: Social History Smoking and tobacco/nicotine status: current every day tobacco/nicotine user cigarettes Packs smoked per day: 0.5 Alcohol intake: current Alcohol intake frequency: 0-2 Drinks per Day Alcohol type: beer Substance/Drug Use: never Physical Exam Const: COMMON NORMALS: no acute distress, average body habitus, patient oriented x3, no limitations, alert and well nourished GENERAL APPEARANCE: cooperative ORIENTATION/CONSCIOUSNESS: Yes awake, Yes oriented to person, Yes oriented to place and Yes oriented to time HENMT: COMMON NORMALS: normocephalic and atraumatic HEAD & SCALP: normocephalic and atraumatic Eye: GENERAL EYE: appearance normal, both eyes and all related structures EYELID: eyelids normal Chest: COMMONS NORMALS: normal inspection of the chest Resp: COMMON NORMALS: normal respiratory effort EFFORT & INSPECTION: Yes able to speak in complete sentences and Yes symmetric chest movement GI: INSPECTION: Yes normal to inspection AUSCULTATION: Yes Hyperactive bowel sounds present PALPATION: Yes Tenderness to palpation present (GI) Details: LLQ : COMMON NORMALS: Yes no CVA tenderness BLADDER/KIDNEY EXAM: Yes no CVA tenderness Back/Pelvis: COMMON NORMALS: no CVA tenderness Extremity: COMMON NORMALS: normal to inspection, full ROM and capillary refill normal Neuro: COMMON NORMALS: patient oriented x3 SENSORIUM/ORIENTATION: Yes alert, Yes oriented to person, Yes oriented to place and Yes oriented to time SPEECH: speech normal Psych: ATTITUDE: Yes engaged ACTIVITY/MOTOR BEHAVIOR: Yes appropriate eye contact ATTENTION/CONCENTRATION: Yes attention grossly intact MEMORY/COGNITION: Yes memory grossly intact Skin: COMMON NORMALS: no rashes or lesions noted, turgor normal and no jaundice GENERAL SKIN EXAM: no rashes or lesions noted and turgor normal Course Vital Signs: Vital signs: Vital Signs Temperature 98.5 F 03/09/25 13:24 Pulse Rate 76 03/09/25 15:43 Respiratory Rate 16 03/09/25 15:43 Blood Pressure 131/90 03/09/25 15:43 Pulse Oximetry 96 03/09/25 15:43 Oxygen Delivery Me thod Room Air 03/09/25 15:00 MDM - Abdominal Pain Medical Decision Making Patient is are present, noting low-lying abdominal pain that started this a.m. Exam, CT is consistent with terminal ileitis. This is concerning for Crohn's disease. He has not formally been diagnosed with inflammatory bowel disease, although there is history of a bad gastroenteritis a year or 2 ago. Discussed with patient and his to obtain a colonoscopy, that they have set up through the [facility]. He will be discharged with Medrol Dosepak, clear liquid diet until symptoms improved. He is improved after treatment here. Medical Records I reviewed the patient's medical records. Lab Data I reviewed the patient's lab results. 03/09/25 14:12 03/09/25 14:12 Labs/Radiology: Radiology Impressions Abdomen/Pelvis CT 03/09/25 14:03 IMPRESSION: Terminal ileitis. This may be caused by inflammatory bowel disease or infection, among other causes. 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 Laboratory Results WBC 13.19 10^3/uL (3.29-11.43) H 03/09/25 14:12 RBC 5.09 10^6/uL (3.85-5.65) 03/09/25 14:12 Hgb 15.60 g/dL (11.27-16.99) 03/09/25 14:12 Hct 44.2 % (37-53) 03/09/25 14:12 MCV 86.8 fl (82-101) 03/09/25 14:12 MCH 30.6 pg (27-33) 03/09/25 14:12 MCHC 35.3 g/dL (30-55) 03/09/25 14:12 RDW 12.5 % (12.1-15.1) 03/09/25 14:12 Plt Count 230 10^3/cmm (157-399) 03/09/25 14:12 MPV 9.0 fL (7.4-10.4) 03/09/25 14:12 Neut % (Auto) 90.7 % 03/09/25 14:12 Lymph % (Auto) 3.7 % 03/09/25 14:12 [place] % (Auto) 4.7 % 03/09/25 14:12 Eos % (Auto) 0.2 % 03/09/25 14:12 Baso % (Auto) 0.2 % 03/09/25 14:12 Neut # (Auto) 11.97 10^3/uL (1.8-7.7) H 03/09/25 14:12 Lymph # (Auto) 0.5 10^3/uL (0.8-4.8) L 03/09/25 14:12 [place] # (Auto) 0.6 10^3/uL (0.2-0.9) 03/09/25 14:12 Eos # (Auto) 0.0 10^3/uL (0.0-0.8) 03/09/25 14:12 Baso # (Auto) 0.0 10^3/uL (0.0-0.1) 03/09/25 14:12 Nucleated RBC % (auto) 0 % 03/09/25 14:12 Nucleated RBCs # 0.0 /100WBC 03/09/25 14:12 Sodium 138 mmol/L (136-145) 03/09/25 14:12 Potassium 4.1 mmol/L (3.5-5.1) 03/09/25 14:12 Chloride 104 mmol/L (98-107) 03/09/25 14:12 Carbon Dioxide 24 mmol/L (22-29) 03/09/25 14:12 Anion Gap 14.1 (5-19) 03/09/25 14:12 BUN 8 mg/dL (6-20) 03/09/25 14:12 Creatinine 0.9 mg/dL (0.7-1.2) 03/09/25 14:12 GFR Calculation 88.6 mL/min (90-130) L 03/09/25 14:12 Glucose 109 mg/dL (65-115) 03/09/25 14:12 Calculated Osmolality 285 mOsm/kg (285-295) 03/09/25 14:12 Lactic Acid 2.0 mmol/L (0.5-2.2) 03/09/25 14:12 Calcium 9.3 mg/dL (8.5-10.5) 03/09/25 14:12 Total Bilirubin 0.8 mg/dL (0.15-1.2) 03/09/25 14:12 AST 18 U/L (0-40) 03/09/25 14:12 ALT 30 U/L (0-41) 03/09/25 14:12 Alkaline Phosphatase 85 U/L (40-130) 03/09/25 14:12 C-Reactive Protein 6.2 mg/L (0.0-4.9) H 03/09/25 14:12 Total Protein 7.3 g/dL (6.6-8.7) 03/09/25 14:12 Albumin 4.4 g/dL (3.5-5.2) 03/09/25 14:12 Globulin 2.9 g/dL (1.3-4.6) 03/09/25 14:12 Lipase 25 U/L (13-60) 03/09/25 14:12 Urine Color Yellow (Yellow) 03/09/25 13:28 Urine Appearance Clear (CLEAR) 03/09/25 13:28 Urine pH 5.0 (5-7) 03/09/25 13:28 Ur Specific Baxter 1.024 (1.005-1.030) 03/09/25 13:28 Urine Protein Negative (Negative) 03/09/25 13:28 Urine Glucose (UA) Negative (Normal) 03/09/25 13:28 Urine Ketones Negative (Negative) 03/09/25 13:28 Urine Blood Negative (Negative) 03/09/25 13:28 Urine Nitrate Negative (Negative) 03/09/25 13:28 Urine Bilirubin Negative (Negative) 03/09/25 13:28 Urine Urobilinogen 0.2 mg/dL (Negative) 03/09/25 13:28 Ur Leukocyte Esterase Negative (Negative) 03/09/25 13:28 Urine RBC 0-2 /hpf (0-2) 03/09/25 13:28 Urine WBC 0-5 /hpf (0-5) 03/09/25 13:28 Ur Squamous Epith Cells 0-5 /hpf (0-5) 03/09/25 13:28 Amorphous Sediment Not Reportable 03/09/25 13:28 Urine Bacteria None seen /hpf (NONE) 03/09/25 13:28 Hyaline Casts 0.81 /lpf 03/09/25 13:28 All radiology interpretation(s) finalized by discharge Discharge Plan Discharge Patient Disposition: Home Clinical Impression: Terminal ileitis Qualifiers: Digestive disease complication type: without complication Qualified Code(s): K50.00 - Crohn's disease of small intestine without complications Condition: Stable Prescriptions: New ketorolac 10 mg tablet 10 mg PO Q8H PRN (Reason: pain) 5 Days Qty: 14 0RF methylprednisolone [Medrol (Jhonny)] 4 mg tablets,dose pack See Rx Instructions .ROUTE .COMPLEX Qty: 21 0RF Rx Instructions: for 6 days ondansetron 4 mg tablet,disintegrating 4 mg PO Q8H PRN (Reason: nausea and vomiting) 4 Days Qty: 14 0RF No Action budesonide-formoterol [Symbicort] 160-4.5 mcg/actuation HFA aerosol inhaler 2 puff INHALATION BID albuterol sulfate [ProAir HFA] 90 mcg/actuation HFA aerosol inhaler 2 puff INHALATION Q6H PRN (Reason: Allergy Symptoms) tizanidine 4 mg tablet 4 mg PO DIRECTED PRN (Reason: Pain) prednisone 20 mg tablet 20 mg PO DAILY Qty: 15 0RF Rx Instructions: 60mg for three days,40mg for two days, 20mg for two days Discharge Orders: Discharge ED (Routine); Ordered 03/09/25 Ordered By: Nancy Schuster Referrals: Felipe Loera MD [Physician, General Surgery] - 1 week Referral Note: for colonoscopy and biopsy Clinical Impression: Terminal ileitis Huong Chaidez, CABINETMAKER HELPER [Primary Care Provider, Nurse Practitioner] Discharge Diet: Clear Liquid Discharge Activity: Resume usual activity Patient Instructions: Crohn Disease (ED), Abdominal Pain (ED), Patient Portal & Jeffrey Instructions Activity Restrictions/Additional Instructions: - Clear liquid diet only until this resolves - I made a referral to surgeon as listed. You are welcome to call their office on Tuesday, make sure they know there is a referral on your ER chart, and set your appointment up. You do not have to wait for them to call you. - As we discussed, you need a colonoscopy for biopsy. - This is inflammatory at this time, therefore clear liquid diet, anti-inflammatories, and nausea medication. This has been sent to your pharmacy. Utilize as directed. No additional NSAIDs right now besides what is prescribed. NSAIDs include ibuprofen, Mobic, Celebrex, naproxen/Aleve. - Return to ED with worsening pain, nausea, vomiting Thank you for choosing [facility] for your healthcare needs today. You have been screened and evaluated and felt safe for discharge. Health conditions do change or evolve sometimes and as such it is important that you follow up with your Primary Doctor to be re checked, 3-5 days is a general good time frame for follow up. You are always welcome to return to the ED for re assessment if your symptoms are worsening or you have new concerns Stand Alone Forms: Work/School Release Print Language: Uzbek Coding Level of Care Code ED Building Rigger for Ace Thomas
[2025-03-09 14:36] LABS: Hematocrit 44.2 % (37-53); Hemoglobin 15.60 g/dL (11.27-16.99); Mean Corpuscular HGB Conc 35.3 g/dL (30-55); Mean Corpuscular Hemoglobin 30.6 pg (27-33); Mean Corpuscular Volume 86.8 fl (82-101); Nucleated Red Blood Cells % 0 %; Platelet Count 230 10^3/cmm (157-399); Red Blood Count 5.09 10^6/uL (3.85-5.65); White Blood Count 13.19 10^3/uL (3.29-11.43)
[2025-03-09] MEDS: acetaminophen 1,000 MG/100 ML PIGGYBACK 400 MG IV (14:40)
[2025-03-09] MEDS: ondansetron 2 mg/ML SDV 2 mL 4 MG IVP (14:43)
[2025-03-09 15:00] VITALS: BP 123/81; O2SAT 98
[2025-03-09 15:00] LABS: Alanine Aminotransferase 30 U/L (0-41); Albumin Level 4.4 g/dL (3.5-5.2); Alkaline Phosphatase 85 U/L (40-130); Anion Gap 14.1 (5-19); Aspartate Amino Transferase 18 U/L (0-40); Blood Urea Nitrogen 8 mg/dL (6-20); Calcium 9.3 mg/dL (8.5-10.5); Carbon Dioxide 24 mmol/L (22-29); Chloride 104 mmol/L (98-107); Creatinine Clr Calc Pharmacy 93.2827; Globulin 2.9 g/dL (1.3-4.6); Glucose 109 mg/dL (65-115); Lipase 25 U/L (13-60); Osmolality Calculated 285 mOsm/kg (285-295); Potassium 4.1 mmol/L (3.5-5.1); Sodium 138 mmol/L (136-145); Total Protein 7.3 g/dL (6.6-8.7)
[2025-03-09 15:01] LABS: Lactic Sepsis W/Reflex 2.0 mmol/L (0.5-2.2)
[2025-03-09 15:43] VITALS: BP 131/90; PULSE 76; RESP 16; O2SAT 96
== END 2025-03-09 15:44 | disposition home or self-care (01) ==
PROVIDERS: Emergency Provider Physician Assistant; PCP Nurse Practitioner
DX: K50.00 Crohn's disease of small intestine without complications (principal); F17.210 Nicotine dependence, cigarettes, uncomplicated
CPT/HCPCS: 36415; 74176; 80053; 81001; 83605; 83690; 85025; 86140; 96374; 96375; 99285; J0131; J1100; J2405; J7120

== ENCOUNTER → 2025-04-23 14:35 | Outpatient (BNVA) | payer OTHER, SELFPAY | PROVIDERS: PCP Nurse Practitioner; Visit Provider Orthopaedic Surgery | DX: Z47.89 Encounter for other orthopedic aftercare (principal); Z98.1 Arthrodesis status | CPT/HCPCS: 72040; 99213 ==